=== PATIENT | male | born 1985 | race African-American/Black ===

== ENCOUNTER 2022-08-27 08:15 | Inpatient (IN) | payer MEDICAID ==
[~2022-08-27] VITALS: Ht 185.4 cm; Wt 88.5 kg
[2022-08-27] MEDS ORDERED: SODIUM CHLORIDE 0.9% 1,000 ML IV ONE (08:45)
[2022-08-27] MEDS ORDERED: LEVETIRACETAM 1000MG PREMIX 100 ML IV ONE (08:45)
[2022-08-27] MEDS ORDERED: MIDAZOLAM HCL 2 MG/2 ML VIAL IV ONE (10:00)
[2022-08-27] MEDS ORDERED: LEVETIRACETAM 1000MG PREMIX 100 ML IV NR (10:00)
[2022-08-27 10:10] LABS: BASOPHILS % 0.4 % (0.0-2.0); EOSINOPHILS % 0.1 % (0.0-5.0); HEMATOCRIT. 38.4 % (42.0-52.0); HEMOGLOBIN. 12.9 g/dL (14.0-18.0); LYMPHOCYTES % 15.2 % (20.0-50.0); MEAN CORPUSCULAR HEMOGLOBIN 30.5 pg (28.0-32.0); MEAN CORPUSCULAR VOLUME 90.9 fL (80.0-94.0); MEAN PLATELET VOLUME 8.7 fl (7.4-10.4); MONOCYTES % 9.9 % (2.0-8.0); NEUTROPHILS % 74.4 % (40.0-76.0); PLATELET 159 x1000/uL (130-400); RED BLOOD CELL COUNT 4.22 mill/uL (4.7-6.1); RED CELL DISTRIBUTION WIDTH 16.2 % (11.6-14.6)
[2022-08-27 10:25] LABS: CHLORIDE 95 mEq/L (98-107)
[2022-08-27 10:38] LABS: CREATINE KINASE 511 IU/L (39-308); ETHANOL BLOOD 25 mg/dL
[2022-08-27] MEDS ORDERED: CLONIDINE 0.1MG TABLET PO PRN (12:15)
[2022-08-27] MEDS ORDERED: GUAIFENESIN 200MG/10ML SUGAR FREE UDC PO PRN (12:15)
[2022-08-27] MEDS ORDERED: ONDANSETRON HCL 4MG/2ML INJ IV PRN (12:15)
[2022-08-27] MEDS ORDERED: DOCUSATE SODIUM 100MG CAPSULE PO PRN (12:15)
[2022-08-27] MEDS ORDERED: MAGNESIUM/ALUMINUM HYDROXIDE/SIMETHICONE 30ML UDC PO PRN (12:15)
[2022-08-27] MEDS ORDERED: ACETAMINOPHEN 325MG TABLET PO PRN (12:15)
[2022-08-27] MEDS ORDERED: IPRATROPIUM/ALBUTEROL 0.5-3(2.5)MG/3ML NEB HHN PRN (12:15)
[2022-08-27] MEDS ORDERED: KCL 20MEQ/100ML PREMIX 100 ML IV NR ×3 (13:30→18:00)
[2022-08-27] MEDS ORDERED: MVI, ADULT NO.1 10 ML, FOLIC ACID 1 MG, THIAMINE HCL 100 MG in SODIUM CHLORIDE 0.9% 1,0... IV ONE ×4 (13:30)
[2022-08-27] MEDS ORDERED: LORAZEPAM 2MG/ML CPJ IV PRN ×2 (14:00)
[2022-08-27] MEDS: ENOXAPARIN 40MG/0.4ML SYR SUBCUT SCH (14:40)
[2022-08-27 17:00] VITALS: BP 103/59
[2022-08-27] MEDS: ACETAMINOPHEN 325MG TABLET PO PRN (18:49)
[2022-08-27 20:00] VITALS: BP 110/59
[2022-08-27] MEDS ORDERED: LEVETIRACETAM 500MG PREMIX 100 ML IV SCH (21:00)
[2022-08-27] MEDS: LEVETIRACETAM 500MG PREMIX 100 ML IV SCH (22:32)
[2022-08-28] VITALS: BP 118/47
[2022-08-28] MEDS: DEXT 5%/0.45% NACL 1000ML 1,000 ML IV SCH ×4 (03:40→16:45)
[2022-08-28 04:00] VITALS: BP 113/72
[2022-08-28 06:11] LABS: BASOPHILS % 0.4 % (0.0-2.0); EOSINOPHILS % 0.3 % (0.0-5.0); HEMATOCRIT. 35.4 % (42.0-52.0); LYMPHOCYTES % 30.5 % (20.0-50.0); MEAN CORPUSCULAR HEMOGLOBIN 30.1 pg (28.0-32.0); MEAN CORPUSCULAR VOLUME 88.6 fL (80.0-94.0); MEAN PLATELET VOLUME 9.8 fl (7.4-10.4); MONOCYTES % 14.8 % (2.0-8.0); PLATELET 121 x1000/uL (130-400); RED CELL DISTRIBUTION WIDTH 16.7 % (11.6-14.6)
[2022-08-28 06:24] LABS: CHLORIDE 101 mEq/L (98-107)
[2022-08-28 06:41] LABS: HDL CHOLESTEROL 112 mg/dL (40-59); LDL CHOLESTEROL 97 mg/dL (5-100); T4 FREE 1.02 ng/dL (0.76-1.46)
[2022-08-28 08:00] VITALS: BP 115/72
[2022-08-28] MEDS: LEVETIRACETAM 500MG PREMIX 100 ML IV SCH ×2 (09:29→20:25)
[2022-08-28] MEDS ORDERED: ALBUTEROL (0.083%) 2.5MG/3ML NEB HHN PRN (10:15)
[2022-08-28] MEDS ORDERED: IPRATROPIUM BROMIDE (0.02%) 0.5MG/2.5ML NEB HHN PRN (10:15)
[2022-08-28] MEDS ORDERED: LORAZEPAM 2MG/ML CPJ IV PRN (12:14)
[2022-08-28 12:15] VITALS: BP 118/73
[2022-08-28] MEDS: ENOXAPARIN 40MG/0.4ML SYR SUBCUT SCH (13:17)
[2022-08-28 16:05] VITALS: BP 129/73
[2022-08-28] MEDS: LORAZEPAM 2MG/ML CPJ IV PRN ×2 (16:42→20:47)
[2022-08-28] MEDS: FLUOXETINE HCL 10 MG CAPSULE PO SCH (16:45)
[2022-08-28] MEDS: ACETAMINOPHEN 325MG TABLET PO PRN (16:45)
[2022-08-28 18:24] LABS: HEPATITIS B SURFACE ANTIGEN NEGATIVE
[2022-08-28 20:00] VITALS: BP 105/65
[2022-08-29] VITALS: BP 106/58
[2022-08-29 04:00] VITALS: BP 114/75
[2022-08-29 08:25] VITALS: BP 115/69
[2022-08-29] MEDS: FLUOXETINE HCL 10 MG CAPSULE PO SCH (09:01)
[2022-08-29] MEDS: DEXT 5%/0.45% NACL 1000ML 1,000 ML IV SCH (09:01)
[2022-08-29] MEDS: LEVETIRACETAM 500MG PREMIX 100 ML IV SCH ×2 (09:01→21:23)
[2022-08-29] MEDS: ACETAMINOPHEN 325MG TABLET PO PRN ×3 (09:02→21:23)
[2022-08-29] MEDS: LORAZEPAM 2MG/ML CPJ IV PRN ×3 (09:02→21:29)
[2022-08-29 12:19] VITALS: BP 135/86
[2022-08-29] MEDS: ENOXAPARIN 40MG/0.4ML SYR SUBCUT SCH (15:00)
[2022-08-29 16:04] VITALS: BP 111/57
[2022-08-29 20:00] VITALS: BP 114/70
[2022-08-29 20:59] LABS: CHLORIDE 99 mEq/L (98-107)
[2022-08-30] VITALS: BP 107/76
[2022-08-30] MEDS: LORAZEPAM 2MG/ML CPJ IV PRN ×4 (03:20→17:10)
[2022-08-30] MEDS: ACETAMINOPHEN 325MG TABLET PO PRN ×3 (03:33→17:07)
[2022-08-30 04:00] VITALS: BP 107/76
[2022-08-30] MEDS: DEXT 5%/0.45% NACL 1000ML 1,000 ML IV SCH ×2 (05:43→09:32)
[2022-08-30 06:11] LABS: BASOPHILS % 0.4 % (0.0-2.0); EOSINOPHILS % 2.2 % (0.0-5.0); HEMATOCRIT. 34.3 % (42.0-52.0); HEMOGLOBIN. 11.7 g/dL (14.0-18.0); LYMPHOCYTES % 32.6 % (20.0-50.0); MEAN CORPUSCULAR HEMOGLOBIN 30.4 pg (28.0-32.0); MEAN PLATELET VOLUME 10.2 fl (7.4-10.4); MONOCYTES % 10.2 % (2.0-8.0); NEUTROPHILS % 54.6 % (40.0-76.0); PLATELET 121 x1000/uL (130-400); RED BLOOD CELL COUNT 3.86 mill/uL (4.7-6.1)
[2022-08-30 08:00] VITALS: BP 119/74
[2022-08-30 09:09] LABS: CHLORIDE 101 mEq/L (98-107)
[2022-08-30 09:20] LABS: PHOSPHORUS 2.9 mg/dL (2.5-4.9)
[2022-08-30] MEDS: LEVETIRACETAM 500MG PREMIX 100 ML IV SCH (09:32)
[2022-08-30] MEDS: FLUOXETINE HCL 10 MG CAPSULE PO SCH (09:33)
[2022-08-30] MEDS: ENOXAPARIN 40MG/0.4ML SYR SUBCUT SCH (14:06)
[2022-08-30] MEDS ORDERED: FLUOX10 PO (14:37)
[2022-08-30] MEDS ORDERED: ONDA4TAB11 PO (14:37)
[2022-08-30] MEDS ORDERED: KEPP500 PO (14:37)
[2022-08-30 17:27] VITALS: BP 120/76
[2022-08-31 04:10] LABS: HIV SCREEN 4G Non Reactive (Non Reactive)
== END 2022-08-30 18:33 | disposition home or self-care (01) | DRG 53 ==
LOC: ER 08:15 → 7WST 12:10 → EDBEDREQ 12:14 → EDBEDREQSVC 12:14 → SUPCPDRO 12:30 → EDBEDREQSVC 13:38
PROVIDERS: ADMIT Internal Medicine; ATTEND Internal Medicine
DX: G40.409 Other generalized epilepsy and epileptic syndromes, not intractable, without status epilepticus (principal); G92.8 Other toxic encephalopathy; K74.60 Unspecified cirrhosis of liver; F10.10 Alcohol abuse, uncomplicated; F31.9 Bipolar disorder, unspecified; E87.6 Hypokalemia; F17.210 Nicotine dependence, cigarettes, uncomplicated; G47.9 Sleep disorder, unspecified; H54.61 Unqualified visual loss, right eye, normal vision left eye; F41.1 Generalized anxiety disorder; Z59.01 Sheltered homelessness; Z91.14 Patient's other noncompliance with medication regimen; Z79.899 Other long term (current) drug therapy
CPT/HCPCS: 36415; 76700; 80053; 80061; 80320; 82140; 82550; 83036; 83735; 84100; 84145; 84439; 84443; 84481; 85025; 86705; 86709; 86803; 87340; 87389; 97116; 97162; 97166; 99291; A6261; C1893; J1650; J1953; J2060; J2250; J2405; J3411; J3480; J3490; J7030; G0480